=== PATIENT | female | born 1995 | race Caucasian/White ===

== ENCOUNTER 2020-08-06 04:41 | Inpatient (IN) ==
[2020-08-06] MEDS ORDERED: RINGER'S SOLUTION,LACTATED 1,000 ML IV ONE (05:24)
[2020-08-06] MEDS ORDERED: RINGER'S SOLUTION,LACTATED 1,000 ML IV PRN (05:24)
[2020-08-06] MEDS ORDERED: ONDANSETRON 4 MG TAB.RAPDIS PO PRN (05:24)
[2020-08-06] MEDS ORDERED: OXYTOCIN/0.9 % SODIUM CHLORIDE 30 UNITS/500 ML BAG IV ONE ×2 (05:24→22:18)
[2020-08-06] MEDS ORDERED: PENICILLIN G POTASSIUM 5 MILLIONUNT in DEXTROSE 5 % IN WATER 100 ML IV ONE ×2 (05:45)
[2020-08-06] MEDS: PENICILLIN G POTASSIUM 2.5 MILLIONUNT in DEXTROSE 5 % IN WATER 100 ML IV SCH ×8 (09:49→22:23)
[2020-08-06] MEDS ORDERED: BUTORPHANOL TARTRATE 2 MG/ML VIAL IV PRN (12:01)
[2020-08-06] MEDS ORDERED: BUPIVACAINE HCL/0.9 % NACL/PF 250 ML EP PRN (12:14)
[2020-08-06] MEDS ORDERED: NALOXONE HCL 1 MG/1 ML SYRG IV PRN (12:14)
[2020-08-06] MEDS ORDERED: ONDANSETRON HCL/PF 2 MG/ML VIAL IV PRN (12:14)
[2020-08-06] MEDS ORDERED: fentaNYL CITRATE/PF 50 MCG/ML AMPUL IT SCH (12:15)
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
--- NOTE | 2020-08-06 13:22 | ANES ---
Post Anesthesia Discharge - Transfer of Care Transfer of Care handoff given to nurse: Yes - Anesthesia Post Op Note Anesthesia Post Op Note: Care transferred to OB RN
--- NOTE | 2020-08-06 13:22 | ANES ---
Post Anesthesia Assessment - Vital Signs Vitals: Last Vital Signs Temp 36.7 C 08/06/20 05:00 Pulse 72 08/06/20 05:00 Resp 18 08/06/20 05:00 BP 131/77 08/06/20 05:00 Pulse Ox 98 08/06/20 05:00 Airway Patency: Normal - Mental Status Level Of Consciousness: Awake - Pain Level Pain Score: 2 - N/V Assessment Nausea/Vomiting Presence: None Dehydration:: No
--- NOTE | 2020-08-06 13:24 | ANES ---
Anesthesia Procedure Note Procedure Note: ANESTHESIA PROCEDURE NOTE Date of Procedure: 08/06/2020 Time of procedure: . Performed by: Cristofer Oshea CRNA Alteration Tailor Apprentice: None. Preprocedure diagnosis: Active labor. Post procedure diagnosis: Same. Procedure: Insertion of labor epidural. Indications: The patient is a [age]-year-old prima para female in active labor requesting labor epidural for pain management. Findings: See below. Details of the procedure: The patient was placed in a sitting position. Back was prepped with DuraPrep. Patient was then draped in a sterile fashion. Lidocaine 1% was infiltrated to the skin and subcutaneous tissues at the level of the L3 4 interspace. The epidural space was identified using a 18-gauge Tuohy needle with [id number] technique. 20 mcg fentanyl was given intrathecally using a 27 ga. spinal needle. Epidural catheter was inserted without difficulty. Negative test dose was elicited using 5 mL of 1.5% preservative-free lidocaine plus epinephrine 1 200,000. The epidural catheter was then taped and secured in place. EBL: Minimal. Fluids: N/A. Specimen: N/A. Post procedure condition: The patient tolerated the procedure well. No complications were noted. Thank you for this consultation. Thomas CRNA
[2020-08-06] MEDS ORDERED: hydrOXYzine PAMOATE 25 MG CAPSULE PO PRN (14:14)
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
--- NOTE | 2020-08-06 22:03 | OR ---
Operative Report - Dictated Report Narrative: Date of delivery: 08/06/2020 Time of delivery: 2145 Gender: male weight: 2560 grams APGARS: 01/04 Procedure: Description of the procedure: The patient is a 25 year old at 36w 4d who presented to L&D with ruptured membranes. She was not in labor and was started on pitocin. She progressed to complete dilation. She delivered a viable male in SUNITHA presentation. The shoulders delivered without any difficulty followed by the rest of the . A tight nuchal cord was noted x2. The infant was delivered through as the was coming without maternal pushing effort. The double nuchal cord was reduced. Cord clamping was delayed for 60 seconds due to vigorous . The cord was clamped and cut. The umbilical cord cyst was not near the insertion at the umbilicus but rather distal. Cord blood was collected. The placenta was delivered by expression, intact, and without difficulty. There were no lacerations. EBL: 20 mL Complications: none Specimens: placenta along with umbilical cord cyst History for Definition: * The number of deliveries resulting in a live the patient experienced prior to current hospitalization * The previous delivery of live twins or any live multiple gestation is considered one live event. *If primagravida or nulliparous is documented select zero for the number of previous live births. Live Events: 0
[2020-08-06] MEDS ORDERED: BENZOCAINE/MENTHOL 81 SPRAY CAN TP PRN (22:18)
[2020-08-06] MEDS ORDERED: GLYCERIN/WITCH HAZEL LEAF 40 APPL BOX TP PRN (22:18)
[2020-08-06] MEDS ORDERED: HYDROCORTISONE 30 APPL TUBE TP PRN (22:18)
[2020-08-06] MEDS ORDERED: BISACODYL 10 MG SUPP.RECT RC PRN (22:18)
[2020-08-06] MEDS ORDERED: SENNOSIDES 8.6 MG TABLET PO PRN (22:18)
[2020-08-06] MEDS ORDERED: HYDROcodone/ACETAMINOPHEN 1 EACH TABLET PO PRN ×2 (22:18)
[2020-08-06] MEDS ORDERED: diphenhydrAMINE HCL 25 MG CAPSULE PO PRN (22:18)
[2020-08-06] MEDS: IBUPROFEN 800 MG TABLET PO PRN (22:47)
--- NOTE | 2020-08-07 07:57 | PN ---
Subjective - Date and Time Seen Date: 08/07/20 Time: 07:56 Subjective Narrative: Patient without complaints Objective Objective Narrative: See vital signs - Review of Systems Generalized/Overall Review: Reports: No Symptoms Reported Misc: All systems neg except as marked - Vitals Vitals: Last Vital Signs Temp 36.6 C 08/07/20 02:55 Pulse 65 08/07/20 02:55 Resp 18 08/07/20 02:55 BP 121/56 08/07/20 02:55 Pulse Ox 98 08/07/20 02:55 - Exam Constitutional: Present: Alert, Oriented x3, Cooperative, No distress Abdomen: Present: soft, nontender, nondistended - fundus is firm Extremity: Present: non-tender, no calf tenderness Skin Exam: Present: normal color, warm/dry, no cyanosis Neurologic: Present: alert, normal mood/affect, oriented x 3 Appearance: Present: appropriate appearance, appropriate insight, neat, no memory impairment Eye contact: Present: cooperative, good eye contact, normal speech Thoughts: Present: normal thought pattern Cauti Physician Documentation - Urinary Catheter Management Urethral (Belle) Urethral Indwelling: No Date of Insertion: 08/06/20 Time of Insertion: 14:10 Date of Removal: 08/06/20 Time of Removal: 21:23 Assessment/Plan Plan Narrative: PPD 1 s/p Doing well Discharge tomorrow - Problems/Diagnosis (1) PROM (premature rupture of membranes) Problem: Acute Qualifiers: PROM onset of labor timing: unspecified duration between rupture of membranes and onset of labor PROM gestational age: -third trimester Qualified Code(s): O42.913 - premature rupture of membranes, unspecified as to length of time between rupture and onset of labor, third trimester (2) 36 weeks gestation of Problem: Acute (3) Smoker Problem: Chronic (4) GBS bacteriuria Problem: Chronic (5) Anxiety Problem: Chronic
[2020-08-07] MEDS: IBUPROFEN 800 MG TABLET PO PRN ×2 (09:40→17:25)
[2020-08-07] MEDS: DOCUSATE SODIUM 100 MG CAPSULE PO SCH ×2 (09:40→21:26)
[2020-08-07] MEDS: PRENATAL VITS96/IRON FUM/FOLIC 1 TAB TABLET PO SCH (09:40)
--- NOTE | 2020-08-08 07:53 | PN ---
Subjective - Date and Time Seen Date: 08/08/20 Time: 07:52 Subjective Narrative: Patient without complaints Objective Objective Narrative: See vital signs - Review of Systems Generalized/Overall Review: Reports: No Symptoms Reported Misc: All systems neg except as marked - Vitals Vitals: Last Vital Signs Temp 36.6 C 08/07/20 17:15 Pulse 61 08/08/20 04:16 Resp 18 08/08/20 04:16 BP 107/51 08/08/20 04:16 Pulse Ox 100 08/08/20 04:16 - Exam Constitutional: Present: Alert, Oriented x3, Cooperative, No distress ENT Exam: Present: hearing grossly normal Neck: Present: normal inspection Breasts: Present: Exam deferred Respiratory: Present: lungs clear, normal breath sounds, no respiratory distress Cardiovascular/Chest: Present: regular rate, rhythm Abdomen: Present: soft, nontender, nondistended - fundus is firm Extremity: Present: non-tender, no calf tenderness Skin Exam: Present: normal color, warm/dry, no cyanosis Neurologic: Present: alert, normal mood/affect, oriented x 3 Appearance: Present: appropriate appearance, appropriate insight, neat, no memory impairment Eye contact: Present: cooperative, good eye contact, normal speech Thoughts: Present: normal thought pattern Cauti Physician Documentation - Urinary Catheter Management Urethral (Belle) Urethral Indwelling: No Date of Insertion: 08/06/20 Time of Insertion: 14:10 Date of Removal: 08/06/20 Time of Removal: 21:23 Assessment/Plan Plan Narrative: PPD 2 s/p Doing well Discharge today - Problems/Diagnosis (1) PROM (premature rupture of membranes) Problem: Acute Qualifiers: PROM onset of labor timing: unspecified duration between rupture of membranes and onset of labor PROM gestational age: -third trimester Qualified Code(s): O42.913 - premature rupture of membranes, unspecified as to length of time between rupture and onset of labor, third trimester (2) 36 weeks gestation of Problem: Acute (3) Smoker Problem: Chronic (4) GBS bacteriuria Problem: Chronic (5) Anxiety Problem: Chronic
--- NOTE | 2020-08-08 07:56 | DS ---
OB Discharge Summary (1) PROM (premature rupture of membranes) Status: Acute Qualifiers: PROM onset of labor timing: unspecified duration between rupture of membranes and onset of labor PROM gestational age: -third trimester Qualified Code(s): O42.913 - premature rupture of membranes, unspecified as to length of time between rupture and onset of labor, third trimester (2) 36 weeks gestation of Status: Acute (3) Smoker Status: Chronic (4) GBS bacteriuria Status: Chronic (5) Anxiety Status: Chronic Delivery Date: 08/06/20 Delivery Time: 21:46 :: 1 Para:: 1 Gestational weeks:: 36 Gestational days:: 4 Intrapartum Procedures: Spontaneous Vaginal Delivery, Anesthesia - Epidural Procedures: None /OP Complications: Other - PPROM Discharge Diagnosis: Delivery, Other - PPROM - Discharge Information Date of Discharge: 08/08/20 Hospital Course: The patient presented ruptured and not in labor. Augmented with pitocin. Delivery and course were uncomplicated. Discharge Location: Home Disposition: Home self-care Activity on Discharge:: Activity as tolerated, Pelvic Rest Discharge Diet: General/regular food Additional Patient Instructions (free text): Sherin your follow up appointment is scheduled for Marsha's follow up appointment is scheduled for His blood type is A+ Discharge weight 5 lbs 8.6 oz Continue to bottlefeed him at least every 3-[address] him on his back to sleep in his own bassinet or crib. No loose blankets, bumper pads, stuffed animals or pillows. Thank you for choosing [facility]. If you have any questions or concerns please don't hesitate to call us at [phone]. [facility] [phone] [facility] [phone] Complete Home Medications List: Complete Home Medication List: hydroxyzine pamoate 25 mg capsule 25 mg PO Q6H PRN #30 cap 07/11/20 Vits96/Iron Fum/Folic [ S] 1 tab PO DAILY 08/06/20 - Plan Discharge to:: Home Comment:: Routine Discharge Instructions Follow up in office in:: 3-4 weeks - [place] Information Weight (Grams): 2,560 Infant Sex: Male Score 1 min: 9 Score 5 min: 9 Infant Complications: Multiple Variable Decels, Other Other Complications: umbilical cord cyst, tight NC x 2
[2020-08-08] MEDS: DOCUSATE SODIUM 100 MG CAPSULE PO SCH (08:56)
[2020-08-08] MEDS: PRENATAL VITS96/IRON FUM/FOLIC 1 TAB TABLET PO SCH (08:56)
[2020-08-08] MEDS: IBUPROFEN 800 MG TABLET PO PRN (08:56)
[2020-08-08 09:02] VITALS: BP 127/80
== END 2020-08-08 12:10 | disposition home or self-care (01) | DRG 807 ==
LOC: OBCLINIC 04:41 → OB 05:23
PROVIDERS: ADMIT Obstetrics & Gynecology; ATTEND Obstetrics & Gynecology
DX: Z37.0 Single live birth; R82.71 Bacteriuria; O42.913 Preterm premature rupture of membranes, unspecified as to length of time between rupture and onset of labor, third trimester; Z3A.36 36 weeks gestation of pregnancy